=== PATIENT | female | born 1955 | race Two or more races ===

== ENCOUNTER 2019-12-04 16:30 | Emergency (ER) | payer MEDICARE, BC ==
[~2019-12-04] VITALS: Ht 162.6 cm; Wt 142.9 kg
[2019-12-04] MEDS ORDERED: SODIUM CHLORIDE 0.9% 1,000 ML IV ONE (17:15)
[2019-12-04 18:23] LABS: Urine Bacteria FEW /hpf (None Seen); Urine Blood 3+ /uL (Negative); Urine Mucus FEW (None Seen); Urine Specific Gravity 1.029 (1.001-1.035); Urine WBC 318 /hpf (0 - 5)
[2019-12-04 19:01] LABS: Basophils # (auto) 0 10 ^3/uL (0-0.2); Basophils % (auto) 0.3 % (0.0-2.0); Eosinophils # (auto) 0.2 10 ^3/uL (0-0.8); Eosinophils % (auto) 2.2 % (0.0-7.0); Hematocrit 41.5 % (36.0-46.0); Hemoglobin 14.2 g/dL (12.2-16.2); Lymphocytes # (auto) 1.5 10 ^3/uL (0.4-5.4); Lymphocytes % (auto) 22.4 % (10.0-50.0); Mean Corpuscular Hemoglobin 31.9 pg (28.0-32.0); Mean Corpuscular Hgb Conc. 34.2 g/dL (32.0-36.0); Mean Corpuscular Volume 93.1 fL (80.0-100.0); Monocytes # (auto) 0.4 10 ^3/uL (0-1.3); Monocytes % (auto) 5.5 % (0.0-12.0); Neutrophils # (auto) 4.8 10 ^3/uL (1.6-8.6); Neutrophils % (auto) 69.6 % (37.0-80.0); Nucleated Red Blood Cells % 0.1 %; Platelet Count (auto) 191 10^3/uL (140-450); Red Blood Cells 4.45 10^6/uL (4.0-5.20); Red Cell Distribution Width 14.8 % (11.8-14.3); White Blood Cell 6.8 10^3/uL (4.4-10.8)
[2019-12-04 19:42] LABS: Albumin 3.5 g/dL (3.4-5.0); Calcium 9.2 mg/dL (8.5-10.1); Potassium 3.7 mmol/L (3.5-5.1)
[2019-12-04 19:48] LABS: BUN/Creatinine Ratio 10.6; Bilirubin, Total 0.9 mg/dL (0.2-1.0)
[2019-12-04 21:46] VITALS: BP 149/80
[2019-12-04] MEDS ORDERED: INSULIN LANTUS (GLARGINE) 1 /0.01ml (100units/ml) SC ONE (22:00)
== END 2019-12-04 22:13 | disposition home or self-care (01) ==
LOC: ER 16:30
DX: N39.0 Urinary tract infection, site not specified (principal); R73.9 Hyperglycemia, unspecified; I12.9 Hypertensive chronic kidney disease with stage 1 through stage 4 chronic kidney disease, or unspecified chronic kidney disease; N18.9 Chronic kidney disease, unspecified; E07.9 Disorder of thyroid, unspecified
CPT/HCPCS: 36415; 80053; 81001; 82962; 85025; 96372; 99283; J1815

== ENCOUNTER → 2020-01-27 | Outpatient (CLI) | payer MEDICARE, BC ==
[2020-01-27 08:51] LABS: Urine Bacteria NONE SEEN /hpf (None Seen); Urine Blood 1+ /uL (Negative); Urine Specific Gravity 1.037 (1.001-1.035); Urine WBC 147 /hpf (0 - 5)
[2020-01-27 09:08] LABS: Albumin 3.4 g/dL (3.4-5.0); Potassium 3.9 mmol/L (3.5-5.1)
[2020-01-27 09:18] LABS: BUN/Creatinine Ratio 11.5; Bilirubin, Total 0.6 mg/dL (0.2-1.0); Calcium 8.8 mg/dL (8.5-10.1); Total Protein 7.6 g/dL (6.4-8.2)
== END | disposition home or self-care (01) ==
LOC: LAB 07:48
PROVIDERS: ATTEND Internal Medicine
DX: E11.9 Type 2 diabetes mellitus without complications (principal); Z12.11 Encounter for screening for malignant neoplasm of colon; E78.5 Hyperlipidemia, unspecified; E03.9 Hypothyroidism, unspecified; N18.9 Chronic kidney disease, unspecified; N39.0 Urinary tract infection, site not specified
CPT/HCPCS: 36415; 80053; 80061; 81001; 82043; 83036; 84443; 87086

== ENCOUNTER → 2020-04-01 | Outpatient (CLI) | payer MEDICARE, BC | END | disposition home or self-care (01) | LOC: XYW 10:09 | PROVIDERS: ATTEND Internal Medicine | DX: I08.3 Combined rheumatic disorders of mitral, aortic and tricuspid valves (principal); R01.1 Cardiac murmur, unspecified | CPT/HCPCS: 93306 ==

== ENCOUNTER 2020-05-10 23:17 | Inpatient (IN) | payer MEDICARE, BC ==
[~2020-05-10] VITALS: Ht 152.4 cm; Wt 108.9 kg
--- NOTE | 2020-05-10 23:40 | NUR ---
PT INTUBATED BY RT FOX ON FIRST ATTEMPT AND WITHOUT INCIDENT @2335. BILATERAL CHEST RISE SEEN AND POSITIVE COLOR CHANGE ON CO2 DETECTOR. PLACED ON VENT, VENT CONNECTED TO RED OUTLET AND O2 SOURCE ALARMS ARE SET AND AUDIBLE. AMBU BAG AND MASK AT BEDSIDE. BS ARE FINE COURSE SXD VIA ETT FOR SMALL THIN CLEAR/VELOZ SECRETIONS. SPUTUM SAMPLE OBTAINED AND SENT TO LAB. WILL CONTINUE TO MONITOR.
[2020-05-11] MEDS ORDERED: NOREPINEPHRINE 8 MG/250ML KIT 250 ML IV ONE ×2 (00:18→10:40)
[2020-05-11] MEDS ORDERED: PROPOFOL 100 ML IV ONE (00:18)
[2020-05-11] MEDS: BUDESONIDE (INHALATION) 0.5 MG/2 ML NEB NEB SCH ×2 (00:38→16:33)
[2020-05-11 03:13] VITALS: BP 86/50
[2020-05-11] MEDS ORDERED: SODIUM CHLORIDE 0.9% 500 ML IV ONE (04:30)
[2020-05-11] MEDS ORDERED: InsuLIN REG 1unit/0.01ml Soln (100units/ml) IV ONE ×2 (04:30→12:30)
[2020-05-11] MEDS ORDERED: diphenhdrAMINE HCL 50 MG/1 ML VL IV ONE (07:00)
[2020-05-11] MEDS ORDERED: ONDANSETRON HCL 4 MG/2 ML VIAL IV ONE (07:00)
[2020-05-11] MEDS ORDERED: OXYCODONE W/ ACETAMINOPHEN 5/325MG TABLET PO ONE (07:00)
[2020-05-11] MEDS: DOPamine 1600MCG/ML D5W 250 ML IV SCH ×2 (07:49→20:00)
[2020-05-11] MEDS ORDERED: fentaNYL Drip 2500mCg/250mlNS 250 ML IV ONE (09:03)
[2020-05-11 09:20] LABS: Hematocrit 39.8 % (36.0-46.0); Hemoglobin 12.8 g/dL (12.2-16.2); Mean Corpuscular Hemoglobin 31.3 pg (28.0-32.0); Mean Corpuscular Hgb Conc. 32.1 g/dL (32.0-36.0); Mean Corpuscular Volume 97.5 fL (80.0-100.0); Platelet Count (auto) 141 10^3/uL (140-450); Red Blood Cells 4.09 10^6/uL (4.0-5.20); Red Cell Distribution Width 15.1 % (11.8-14.3); White Blood Cell 24.4 10^3/uL (4.4-10.8)
[2020-05-11 09:27] LABS: INR 1.04 (0.9-1.15)
[2020-05-11 09:29] LABS: Potassium 4.9 mmol/L (3.5-5.1)
[2020-05-11] MEDS ORDERED: BUMETANIDE 2.5mg/10ml (0.25 mg/ml) INJ IV ONE (09:30)
[2020-05-11] MEDS: MIDAZOLAM DRIP 50 mg/50mL 50 ML IV SCH (09:30)
[2020-05-11] MEDS ORDERED: NITROGLYCERIN 0.4 MG SL TAB SL PRN (09:30)
[2020-05-11] MEDS ORDERED: DEXTROSE (50%) 50ML SYRG IV PRN ×2 (09:30→16:30)
[2020-05-11] MEDS ORDERED: ONDANSETRON HCL 4 MG/2 ML VIAL IV PRN (09:30)
[2020-05-11] MEDS ORDERED: MORPHINE SULF INJ 2 MG/ML SYRINGE 1ML IV PRN (09:30)
[2020-05-11 09:43] LABS: Albumin 1.5 g/dL (3.4-5.0); BUN/Creatinine Ratio 18.7; Bilirubin, Total 0.7 mg/dL (0.2-1.0); Calcium 7.3 mg/dL (8.5-10.1); Total Protein 6.9 g/dL (6.4-8.2)
[2020-05-11] MEDS: fentaNYL Drip 2500mCg/250mlNS 250 ML IV SCH (09:45)
[2020-05-11 09:58] LABS: Basophils % (manual) 0 (0.0-2.0); Blast Cells 0; Monocytes % (manual) 0 (0-12); Promyelocytes % 0; Reactive Lymphocytes 0
[2020-05-11] MEDS ORDERED: cefTRIAXone 1GM/50ML D5W 50 ML IV SCH (10:00)
[2020-05-11] MEDS ORDERED: VANCOMYCIN PER PHARMACY 0 MG IV SCH (10:00)
[2020-05-11 10:05] LABS: Magnesium 4.2 mg/dL (1.6-2.6)
[2020-05-11] MEDS: NOREPINEPHRINE 8 MG/250ML KIT 250 ML IV SCH (10:49)
[2020-05-11] MEDS ORDERED: PIPERACILLIN-TAZOB 3.375GM 100 ML IV ONE (11:00)
[2020-05-11] MEDS ORDERED: AZITHROMYCIN 500MG/ 250ML 250 ML IV SCH (11:00)
[2020-05-11] MEDS: SODIUM BICARBONATE 50ML VIAL 100 ML in D5W 5% 1,000 ML IV SCH (11:19)
[2020-05-11] MEDS ORDERED: PIPERACILLIN-TAZOB 3.375GM 100 ML IV SCH (12:00)
[2020-05-11] MEDS: InsuLIN REG 1unit/0.01ml Soln (100units/ml) SC SCH ×2 (12:10→15:43)
[2020-05-11] MEDS: ACCU-CHEK COMFORT CURVE STRIP VI SCH ×3 (12:10→20:00)
[2020-05-11] MEDS ORDERED: VANCOMYCIN 1GM/250ML 250 ML IV ONE (13:00)
[2020-05-11 13:25] LABS: Band Neutrophils % (manual) 31; Eosinophils % (manual) 1 (0-7); Lymphocytes % (manual) 3 (10.0-50.0); Metamyelocytes % 4; Myelocytes % 2
[2020-05-11 13:47] VITALS: BP 142/55
[2020-05-11] MEDS ORDERED: levoFLOXacin 250MG 50 ML IV SCH (16:30)
[2020-05-11] MEDS: DOXYCYCLINE 100MG/250ML 250 ML IV SCH (17:40)
[2020-05-11 19:04] VITALS: BP 133/49
[2020-05-11] MEDS ORDERED: PIPERACILLIN-TAZOB 2.25GM 50 ML IV SCH (22:00)
[2020-05-12] MEDS: InsuLIN REG 1unit/0.01ml Soln (100units/ml) SC SCH ×7 (00:09→20:00)
[2020-05-12] MEDS: SODIUM BICARBONATE 50ML VIAL 100 ML in D5W 5% 1,000 ML IV SCH (00:10)
[2020-05-12] MEDS: INSULIN LANTUS (GLARGINE) 1 /0.01ml (100units/ml) SC SCH ×2 (00:12→22:00)
[2020-05-12] MEDS: ACCU-CHEK COMFORT CURVE STRIP VI SCH ×6 (00:15→20:00)
[2020-05-12 00:28] VITALS: BP 123/52
[2020-05-12 04:02] LABS: Basophils # (auto) 0 10 ^3/uL (0-0.2); Basophils % (auto) 0.2 % (0.0-2.0); Eosinophils # (auto) 0.5 10 ^3/uL (0-0.8); Eosinophils % (auto) 2.1 % (0.0-7.0); Hematocrit 37.6 % (36.0-46.0); Hemoglobin 12.2 g/dL (12.2-16.2); Lymphocytes # (auto) 0.9 10 ^3/uL (0.4-5.4); Lymphocytes % (auto) 3.9 % (10.0-50.0); Mean Corpuscular Hemoglobin 31.1 pg (28.0-32.0); Mean Corpuscular Hgb Conc. 32.4 g/dL (32.0-36.0); Mean Corpuscular Volume 95.9 fL (80.0-100.0); Monocytes # (auto) 0.1 10 ^3/uL (0-1.3); Monocytes % (auto) 0.6 % (0.0-12.0); Neutrophils # (auto) 22.8 10 ^3/uL (1.6-8.6); Neutrophils % (auto) 93.2 % (37.0-80.0); Nucleated Red Blood Cells % 0.6 %; Platelet Count (auto) 92 10^3/uL (140-450); Red Blood Cells 3.92 10^6/uL (4.0-5.20); White Blood Cell 24.4 10^3/uL (4.4-10.8)
[2020-05-12 04:21] LABS: Calcium 6.8 mg/dL (8.5-10.1); Potassium 4.8 mmol/L (3.5-5.1)
[2020-05-12 04:26] LABS: BUN/Creatinine Ratio 18.2
[2020-05-12] MEDS ORDERED: SODIUM CHLORIDE 0.9% 1,000 ML IV SCH (04:30)
[2020-05-12] MEDS: DOXYCYCLINE 100MG/250ML 250 ML IV SCH (04:30)
[2020-05-12 06:45] VITALS: BP 116/64
[2020-05-12] MEDS: BUDESONIDE (INHALATION) 0.5 MG/2 ML NEB NEB SCH ×2 (06:45→22:00)
[2020-05-12] MEDS: DOPamine 1600MCG/ML D5W 250 ML IV SCH ×2 (08:15→20:30)
[2020-05-12] MEDS: MIDAZOLAM DRIP 50 mg/50mL 50 ML IV SCH (09:45)
[2020-05-12] MEDS: fentaNYL Drip 2500mCg/250mlNS 250 ML IV SCH (09:48)
[2020-05-12] MEDS: NOREPINEPHRINE 8 MG/250ML KIT 250 ML IV SCH (09:49)
[2020-05-12] MEDS ORDERED: PIPERACILLIN-TAZOB 0.75 GM in D5W 5% 50 ML IV PRN (10:00)
--- NOTE | 2020-05-12 10:00 | NUR ---
CERVICAL AND CHEST CT HELD SECONDARY TO PATIENT RESPIRATORY INSTABILITY - FIO2 100% PEEP 10
[2020-05-12] MEDS ORDERED: InsuLIN REG 1unit/0.01ml Soln (100units/ml) IV ONE (10:15)
[2020-05-12] MEDS: SODIUM BICARBONATE 50ML VIAL 50 ML in SOD CHL 0.45% 1,000 ML IV SCH (10:15)
[2020-05-12 10:19] VITALS: BP 105/63
--- NOTE | 2020-05-12 11:20 | NUR ---
Respiratory note: PAGE OUT TO TO REPORT CRITICAL ABG VALUE.
--- NOTE | 2020-05-12 11:25 | NUR ---
Respiratory note: SECOND PAGE TO FOR CRITICAL ABG VALUE.
--- NOTE | 2020-05-12 11:55 | NUR ---
Respiratory note: VENT CHANGE PER IP FROM 32 TO 26, INCREASED PEEP FROM 8 TO 12
--- NOTE | 2020-05-12 11:55 | NUR ---
Respiratory note: PAGE OUT TO ROBYN TOSCANO FOR CRITICAL ABG VALUE Addendum: 05/12/20 at 1250 by Asya Underwood RT CORRECTION ON TIME. PAGE SENT OUT AT [phone]
[2020-05-12] MEDS: HYDROCORTISONE SOD SUCC 100 MG/2ML INJ VIAL IV SCH ×2 (13:15→18:21)
[2020-05-12] MEDS ORDERED: LINEZOLID 600MG/300ML 300 ML IV ONE (13:30)
[2020-05-12] MEDS ORDERED: PIPERACILLIN-TAZO 4.5GM 100 ML IV ONE (13:30)
[2020-05-12 13:40] VITALS: BP 84/47
[2020-05-12] MEDS ORDERED: PIPERACILLIN-TAZO 4.5GM 100 ML IV SCH (14:00)
[2020-05-12] MEDS: PIPERACILLIN-TAZOB 2.25GM 50 ML IV SCH ×2 (14:00→22:00)
[2020-05-12] MEDS ORDERED: PIPERACILLIN-TAZOB 3.375GM 100 ML IV SCH (18:00)
[2020-05-12 20:30] VITALS: BP 0/0
--- NOTE | 2020-05-12 21:20 | NUR ---
Respiratory note: REMOVED PT FROM VENT AT THIS TIME. PT RICKY CALLED AT 1943 PER RN
[2020-05-12] MEDS ORDERED: LINEZOLID 600MG/300ML 300 ML IV SCH (22:00)
[2020-05-13] MEDS: HYDROCORTISONE SOD SUCC 100 MG/2ML INJ VIAL IV SCH
[2020-05-13] MEDS: SODIUM BICARBONATE 50ML VIAL 50 ML in SOD CHL 0.45% 1,000 ML IV SCH (00:15)
[2020-05-13] MEDS: PIPERACILLIN-TAZOB 2.25GM 50 ML IV SCH (01:58)
[2020-05-13] MEDS: ACCU-CHEK COMFORT CURVE STRIP VI SCH ×2 (01:58)
[2020-05-13] MEDS: InsuLIN REG 1unit/0.01ml Soln (100units/ml) SC SCH ×2 (01:58)
[2020-05-13] MEDS ORDERED: INSULIN LANTUS (GLARGINE) 1 /0.01ml (100units/ml) SC SCH (10:00)
== END 2020-05-12 19:43 | DRG 871 ==
LOC: EDBD 23:17 → ER 23:18 → OVERFLOW 23:19
PROVIDERS: ADMIT Nurse Practitioner Acute Care; ATTEND Internal Medicine Pulmonary Disease
PROC: 5A1945Z Respiratory Ventilation, 24-96 Consecutive Hours (ICD-10-PCS; principal; 2020-05-11)
PROC: 0BH17EZ Insertion of Endotracheal Airway into Trachea, Via Natural or Artificial Opening (ICD-10-PCS; 2020-05-11)
DX: A41.89 Other specified sepsis (principal); R65.21 Severe sepsis with septic shock; U07.1 COVID-19; J96.01 Acute respiratory failure with hypoxia; J12.89 Other viral pneumonia; N17.0 Acute kidney failure with tubular necrosis; F13.20 Sedative, hypnotic or anxiolytic dependence, uncomplicated; D68.59 Other primary thrombophilia; Z68.42 Body mass index [BMI] 45.0-49.9, adult; Z99.11 Dependence on respirator [ventilator] status; Z51.5 Encounter for palliative care; G89.4 Chronic pain syndrome; Z66 Do not resuscitate; E66.01 Morbid (severe) obesity due to excess calories; N18.9 Chronic kidney disease, unspecified; E78.5 Hyperlipidemia, unspecified; I12.9 Hypertensive chronic kidney disease with stage 1 through stage 4 chronic kidney disease, or unspecified chronic kidney disease; E11.22 Type 2 diabetes mellitus with diabetic chronic kidney disease; E11.65 Type 2 diabetes mellitus with hyperglycemia
CPT/HCPCS: 31500; 36415; 36600; 71045; 80048; 80053; 82805; 82962; 83735; 83880; 84443; 84484; 85007; 85025; 85027; 85379; 85610; 85730; 87070; 87077; 87186; 87205; 87426; 87804; 92950; 94002; 94003; 94640; 96361; 96374; 99291; G0378; J1815; J2250; J2543; J2704; J3490